=== PATIENT | male | born 1975 | race Caucasian/White ===

== ENCOUNTER 2021-01-16 14:08 | Emergency (ER) | payer OTHER, SELFPAY ==
[2021-01-16 14:08] VITALS: BP 110/89; PULSE 96; RESP 16; TEMP 38; O2SAT 95; BMI 29.8
--- NOTE | 2021-01-16 15:18 | EDS_ITS ---
HPI HPI - GI History of Present Illness Chief Complaint: Diarrhea Detail of Chief Complaint: Diarrhea that started 3 nights ago Informant: patient Narrative Narrative: Patient presents to the emergency department chief complaint of diarrhea that started 3 nights ago. Patient states that he was diagnosed with COVID-19 1 week ago. Patient felt like he was doing better and then the diarrhea started. Patient states that he has diarrhea every 1/2 hour and typically worse at night. Stool is watery without any blood in it. He still having some low-grade fevers. He denies any significant abdominal pain. He den ies urinary symptoms. He denies eating any undercooked foods or suspicious foods. No recent antibiotics. No recent travel. Patient states that his and child also had Covid but they are doing well. PFSH PFS Home Medications NK 01/16/21 [History Last Taken Unknown] Allergy/AdvReac Type Severity Reaction Status Date / Time No Known Allergies Allergy Verified 01/16/21 14:12 Social History Smoking Status: Never smoker [facility] ED Constitutional Constitutional ED: Reports systems reviewed and no addt'l complaints, except as documented and fever(s); Denies body ache(s), change in weight or chills Eyes Eyes: Denies acute decrease in peripheral vision, change in vision, double vision or loss of vision ENT ENT ED: Reports none; Denies ear pain, lip swelling, loss taste/smell, neck pain, otalgia or sore throat Cardiovascular Cardiovascular: Reports none; Denies abdominal pain, chest pain with activity, leg edema, lightheadedness, palpitations, rapid heart rate or syncope Respiratory/Chest Respiratory/Chest: Reports none; Denies change in mental status, dry cough, dyspnea, hemoptysis, shortness of breath at rest or shortness of breath with exertion Gastrointestinal Gastrointestinal: Reports none and diarrhea; Denies abdominal pain, change in stool character, hematemesis, hematochezia, melena, rectal bleeding or vomiting Genitourinary Genitourinary ED: Reports none; Denies abdominal discomfort, anuria, dysuria, genital pain or polyuria Musculoskeletal Musculoskeletal: Reports none; Denies arthralgias, back pain, difficulty walking, extremity pain, muscle weakness or myalgias Integumentary Reports none; Denies abscess or rash Neurologic Neurologic: Reports none; Denies abnormal gait, confusion, focal weakness, frequent falls, headache(s), loss of vision, numbness, paresthesias, radicular pain, vertigo or weakness Psychiatric Psychiatric: Reports systems reviewed and no addt'l complaints, except as documented and none; Denies behavioral changes, confusion, difficulty concentrating, hallucinations, suicidal ideation, tactile hallucinations or visual hallucinations Endocrine Endocrinology: Denies none, cold intolerance, excessive sweating, fatigue or heat intolerance Hematologic/Lymphatic Hematologic/Lymphatic: Reports none; Denies anemia, easy bleeding or easy bruising Allergic/Immunologic Allergic/Immunologic ED: Denies as per HPI, none, lip swelling, mouth swelling, throat swelling, tongue swelling or hives EXAM Physical Exam Const Vital Signs: 01/16/21 14:08 Temperature 100.4 F H Temperature Source Oral Pulse Rate 96 Respiratory Rate 16 Blood Pressure 110/89 H Blood Pressure Mean 96 Pulse Ox 95 Oxygen Delivery Method Room Air Positive well nourished and well developed General Appearance ED: well developed and NAD HEENT Reports TM's clear and moist mucous membranes normocephalic and atraumatic; Negative for trauma or tenderness Tympanic Membrane ED: Yes TM's clear Eyes PERRL and EOMs intact bilaterally General Eye ED: Negative for pale conjunctiva or scleral icterus Neck no lymphadenopathy, supple and no JVD General: Negative for tenderness Chest Wall inspection of chest normal and palpation of chest normal Chest: Negative for tenderness Resp normal respiratory effort and clear to auscultation bilaterally Effort and Inspection: Negative for respiratory distress or pain with movement Auscultation: Negative for rhonchi, wheezes or diminished lung sounds Cardio regular rate, regular rhythm, S1 normal heart sound, S2 normal heart sound and no murmurs Peripheral Pulses: pulses 2+ throughout GI normal to inspection, nondistended, normoactive bowel sounds, soft to palpation, non-tender, non-distended and no masses Back/Spine no CVA tenderness and no thoracic nor lumbar tenderness Extremity normal to inspection General Extremety ED: Negative for edema General Extremity: Negative for edema Neuro oriented x3, CN's II-XII intact bilaterally, no sensory deficits noted and gait normal Sensorium / Orientation: awake, alert, oriented to person, oriented to place and oriented to time Motor Exam: strength 5/5 throughout and strength abnormal Psych mental status grossly normal Skin no rashes or lesions noted and no wounds MDM MDM MDM Narrative Medical decision making narrative: Patient had a liter normal same fluid bolus. Stool was sent for enteric pathogens. This point recommended he use Imodium for persistent diarrhea. He is to push fluids. He is to follow-up with his primary care physician 3 to 5 days. Patient advised to return if increasing shortness of breath, worsening abdominal pain, dehydration, or condition worsen anyway. Lab Data Attestation: I reviewed the patient's lab results. Labs: Laboratory Results - last 24 hr 01/16/21 01/16/21 15:30 15:30 WBC 4.3 L RBC 5.10 Hgb 14.6 Hct 40.6 MCV 79.6 L MCH 28.6 MCHC 36.0 RDW Std Deviation 35.7 RDW Coeff of [place] 12.4 Plt Count 194 MPV 10.2 Immature Gran % (Auto) 0.900 Neut % (Auto) 67.3 Lymph % (Auto) 19.8 [place] % (Auto) 11.8 H Eos % (Auto) 0.0 Baso % (Auto) 0.2 Absolute Neuts (auto) 2.9 Absolute Lymphs (auto) 0.84 Nucleated RBC % 0 Sodium 128 L Potassium 3.7 Chloride 93 L Carbon Dioxide 27.0 Anion Gap 8 BUN 13 Creatinine 1.10 Estim Creat Clear Calc 87.56 Est GFR (MDRD) Af Amer 93 Est GFR (MDRD) Non-Af 77 BUN/Creatinine Ratio 11.8 Glucose 122 H Calcium 8.5 Discharge Plan Triage Chief Complaint: Diarrhea ED Provider: Todd Richardson Dx/Rx/DC Orders Clinical Impression: COVID-19, Diarrhea Instructions: ED Diarrhea, Viral (Adult), Caring for Someone Who Has COVID-19 Prescriptions: No Action NK RF: 0 Primary Care Provider: Care Physician,No Primary Referrals: Alma Campuzano MD [STAFF PHYSICIAN] - 5-7 Days Care Physician,No Primary [Primary Care Provider] - Disposition Disposition: Home, Self Care
[2021-01-16] MEDS: 0.9% Normal Saline 1,000 ML 1000 ML IV (15:28)
[2021-01-16 15:45] LABS: Absolute Lymphocyte Count 0.84 X10^3/uL (0.83-4.51); Absolute Neutrophil Count 2.9 X10^3/uL (2.0-7.7); Basophil# 0.01 X10^3/uL; Basophil% 0.2 % (0-1); Hematocrit 40.6 % (40-54); Hemoglobin 14.6 g/dL (13.0-16.5); Lymphocyte # 0.84 X10^3/ul (0.83-4.51); Lymphocyte % 19.8 % (19-41); Mean Corpuscular Hgb 28.6 pg (27.0-32.0); Mean Corpuscular Volume 79.6 fL (80-94); Mean Platelet Vol. 10.2 fl (6.2-12.0); Monocyte% 11.8 % (0-10); NRBC Flagged by Analyzer 0 % (0-5); Neutrophil # 2.86 X10^3/uL (2.7-7.7); Neutrophil % 67.3 % (47-70); Platelet Count 194 K/mm3 (150-450); RBC Distribution Width CV 12.4 % (11.6-14.6); RBC Distribution Width SD 35.7 fl (35.1-43.9); White Blood Count 4.3 K/mm3 (4.4-11.0)
[2021-01-16 16:00] LABS: Anion Gap 8 (5-15); BUN 13 mg/dL (7-18); BUN/Creat Ratio 11.8 RATIO (10-20); Calcium,Total 8.5 mg/dL (8.5-10.1); Chloride 93 mmol/L (98-107); EST Glomerular Filtration Rate 77 mL/min (>60); Est Glom Filt Rate - Afr Amer 93 mL/min (>60); Estimated Creatinine Clearance 87.56 ml/min; Glucose 122 mg/dL (74-106); Potassium 3.7 mmol/L (3.5-5.1); Sodium Level 128 mmol/L (136-145)
== END 2021-01-16 17:26 | disposition home or self-care (01) ==
PROVIDERS: Emergency Provider Emergency Medicine
DX: U07.1 COVID-19 (principal); R19.7 Diarrhea, unspecified
CPT/HCPCS: 80048; 85025; 87506; 96360; 99283; J7030; A4216